=== PATIENT | female | born 1955 | race Caucasian/White ===

== ENCOUNTER 2017-07-30 12:39 | Emergency (ER) | payer BC ==
[2017-07-30 14:51] VITALS: BP 138/65
--- NOTE | 2017-07-30 15:11 | UC ---
Respiratory Complaint HPI - HPI Summary HPI Summary: 61 yo female with f/c cough and myalgias x 2 days no cp or sob - History of Current Complaint Chief Complaint: UCRespiratory Stated Complaint: FLU SYMPTOMS Time Seen by Provider: 07/30/17 15:01 Hx Obtained From: Patient Onset/Duration: Gradual Onset, Lasting Days Timing: Constant Severity Initially: Moderate Severity Currently: Mild Pain Intensity: 4 Pain Scale Used: 0-10 Numeric Character: Cough: Nonproductive Associated Signs And Symptoms: Positive: Nasal Congestion, Sinus Discomfort - Allergies/Home Medications Allergies/Adverse Reactions: Allergies Allergy/AdvReac Type Severity Reaction Status Date / Time No Known Allergies Allergy Verified 07/30/17 14:51 Home Medications: Home Medications Dapagliflozin Propanediol [Farxiga] 10 mg PO 07/30/17 [History] Levothyroxine TAB* [Synthroid TAB*] 125 mcg PO 0800 07/30/17 [History Confirmed 07/30/17] Pioglitazone TAB* [Actos TAB*] 15 mg PO DAILY 07/30/17 [History Confirmed ] Repaglinide [Prandin] 2 mg PO 07/30/17 [History] Valsartan [Valsartan 320 MG] 320 mg PO DAILY 07/30/17 [History Confirmed ] metFORMIN* [Glucophage 1000 MG TAB *] 1,000 mg PO BID 07/30/17 [History Confirmed 07/30/17] PMH/Surg Hx/FS Hx/Imm Hx Previously Healthy: Yes Endocrine History: Diabetes Cardiovascular History: Hypertension - Surgical History Surgical History: None - Family History Known Family History: Positive: Cardiac Disease, Diabetes - Social History Alcohol Use: Rare Substance Use Type: None Smoking Status (MU): Never Smoked Tobacco Review of Systems Constitutional: Fever, Chills, Fatigue Skin: Negative Eyes: Negative ENT: Nasal Discharge Respiratory: Cough Cardiovascular: Negative Gastrointestinal: Negative Genitourinary: Negative Motor: Negative Neurovascular: Negative Musculoskeletal: Myalgia Neurological: Headache Psychological: Negative Is Patient Immunocompromised?: No All Other Systems Reviewed And Are Negative: Yes Physical Exam Triage Information Reviewed: Yes Appearance: Well-Appearing, No Pain Distress, Well-Nourished Vital Signs: Initial Vital Signs Temp 100.8 F 07/30/17 14:46 Pulse 102 07/30/17 14:46 Resp 18 07/30/17 14:46 BP 138/65 07/30/17 14:46 Pulse Ox 95 07/30/17 14:46 Vital Signs Reviewed: Yes Eyes: Positive: Conjunctiva Clear ENT: Positive: Hearing grossly normal, Nasal congestion, Nasal drainage, Uvula midline. Negative: Muffled voice, Hoarse voice Neck: Positive: Supple, Nontender Respiratory: Positive: Chest non-tender, Lungs clear, Normal breath sounds, No respiratory distress Cardiovascular: Positive: RRR, No Murmur Musculoskeletal: Positive: ROM Intact, No Edema Neurological: Positive: Alert Skin Exam: Normal UC Diagnostic Evaluation - Laboratory Pertinent Lab Values Are: WNL Except: - inluenza A (+) O2 Sat by Pulse Oximetry: 95 Respiratory Course/Dx - Differential Dx/Diagnosis Provider Diagnoses: influenza Discharge - Discharge Plan Condition: Stable Disposition: HOME Prescriptions: Oseltamivir CAP* [Tamiflu CAP*] 75 mg PO BID #10 cap Patient Education Materials: Influenza (ED) Referrals: Non Staff,Doctor [Primary Care Provider] - 6 Days (if not better) Additional Instructions: rest fluids tylenol or advil recheck for new or worsening symptoms
== END 2017-07-30 15:33 | disposition home or self-care (01) ==
LOC: UCCORT 12:39
DX: J10.1 Influenza due to other identified influenza virus with other respiratory manifestations (principal); E11.9 Type 2 diabetes mellitus without complications; Z79.84 Long term (current) use of oral hypoglycemic drugs; I10 Essential (primary) hypertension
CPT/HCPCS: 87502; 99202; G0463

== ENCOUNTER 2018-06-15 08:52 | Emergency (ER) | payer BC ==
[2018-06-15 09:35] VITALS: BP 135/61
--- NOTE | 2018-06-15 09:59 | UC ---
General HPI - HPI Summary HPI Summary: "I THINK I HAVE A UTI". THIS AM PT NOTED "DISCOMFORT" WITH URINATION PLUS SOME FREQUENCY AND URGENCY WELL. HERE, SHE NOTED SOME BLOOD IN THE URINE. SHE DENIES ANY HX OF INJURY, FEVER, ABDOMINAL OR FLANK PAIN. NO BLOOD THINNER USE OR ISSUES WITH BRUISING/BLEEDING. - History of Current Complaint Chief Complaint: UCGU Stated Complaint: URINARY Time Seen by Provider: 06/15/18 09:52 Hx Obtained From: Patient Onset/Duration: Gradual Onset Pain Intensity: 0 Associated Signs & Symptoms: Positive: Dysuria. Negative: Abdominal Pain, Anticoagulation Therapy, Back Pain, Fever, Nausea, Vomiting - Allergy/Home Medications Allergies/Adverse Reactions: Allergies Allergy/AdvReac Type Severity Reaction Status Date / Time No Known Allergies Allergy Verified 06/15/18 09:31 PMH/Surg Hx/FS Hx/Imm Hx Endocrine History: Diabetes, Thyroid Disease - Surgical History Surgical History: None - Family History Known Family History: Positive: Cardiac Disease, Diabetes - Social History Lives: With Family Alcohol Use: None Substance Use Type: None Smoking Status (MU): Never Smoked Tobacco - Immunization History Vaccination Up to Date: Yes Review of Systems All Other Systems Reviewed And Are Negative: Yes Constitutional: Positive: Negative Skin: Positive: Negative Eyes: Positive: Negative ENT: Positive: Negative Respiratory: Positive: Negative Cardiovascular: Positive: Negative Gastrointestinal: Positive: Negative Genitourinary: Positive: Dysuria, Hematuria, Frequency, Urgency. Negative: Vaginal/Penile Discharge Motor: Positive: Negative Neurovascular: Positive: Negative Musculoskeletal: Positive: Negative Neurological: Positive: Negative Psychological: Positive: Negative Physical Exam Triage Information Reviewed: Yes Appearance: Well-Appearing Vital Signs: Initial Vital Signs Temp 98.2 F 06/15/18 09:29 Pulse 95 06/15/18 09:29 Resp 16 06/15/18 09:29 BP 135/61 06/15/18 09:29 Pulse Ox 98 06/15/18 09:29 Vital Signs Reviewed: Yes Eyes: Positive: Conjunctiva Clear ENT: Positive: Normal ENT inspection Neck: Positive: Supple, Nontender, No Lymphadenopathy Respiratory: Positive: Lungs clear, Normal breath sounds Cardiovascular: Positive: RRR, Murmur:Sys:Grade _?_/ - II Abdomen Description: Positive: Nontender, No Organomegaly, Soft. Negative: CVA Tenderness (R), CVA Tenderness (L), Distended, Guarding Bowel Sounds: Positive: Present Musculoskeletal: Positive: ROM Intact Neurological: Positive: Alert Psychological: Positive: Normal Response To Family, Age Appropriate Behavior Skin Exam: Normal Diagnostics - Laboratory Diagnostic Studies Completed/Ordered: U/A=PROTEIN, GLUCOSE, BLOOD WITH CULTURE PENDING. Course/Dx - Course Course Of Treatment: NON TOXIC, NO ACUTE ABDOMEN. WILL COVER FOR UTI BUT POSSIBLE CYSTITIS(NON INFECTION) OR CA GIVEN BLOOD IN URINE. PT ADVISED OF NEED FOR CLOSE F/U TO WHICH SHE AGREES. INCIDENAL MURMUR ON EXAM, NEW. NO CP OR SOB. PT ADVISED OF NEED FOR F/U AND EVALUATION TO WHICH SHE AGREES WELL. - Diagnoses Provider Diagnosis: Dysuria, Hematuria, Murmur, heart Discharge - Sign-Out/Discharge Documenting (check all that apply): Patient Departure All imaging exams completed and their final reports reviewed: No Studies - Discharge Plan Condition: Stable Disposition: HOME Prescriptions: Cephalexin CAP* [Keflex CAP*] 500 mg PO BID 7 Days #14 cap Patient Education Materials: Hematuria (ED), Dysuria (ED), Heart Murmur (ED) Referrals: No Primary Care Phys,NOPCP [Primary Care Provider] - Additional Instructions: FOLLOW UP WITH YOUR PRIMARY CARE AT [facility] IN 4-5 DAYS. GO TO ER FOR ANY WORSENING. - Billing Disposition and Condition Condition: STABLE Disposition: Home - Attestation Statements Provider Attestation: I was available for consult. This patient was seen by the KIMI. The patient was not presented to, seen by, or examined by me. -Dioni
--- NOTE | 2018-06-17 07:17 | UC ---
- Progress Note Progress Note: urine - no growth on cephalexin Please call pt - ensure f/u with PCP as had 3+ blood if improving - complete abx course to ED with ongoing or worsening sx 06/17/18 Course/Dx - Diagnoses Provider Diagnoses: Dysuria, Hematuria, Murmur, heart Discharge - Sign-Out/Discharge Documenting (check all that apply): Post-Discharge Follow Up All imaging exams completed and their final reports reviewed: No Studies - Discharge Plan Condition: Stable Disposition: HOME Prescriptions: Cephalexin CAP* [Keflex CAP*] 500 mg PO BID 7 Days #14 cap Patient Education Materials: Hematuria (ED), Dysuria (ED), Heart Murmur (ED) Referrals: No Primary Care Phys,NOPCP [Primary Care Provider] - Additional Instructions: FOLLOW UP WITH YOUR PRIMARY CARE AT [facility] IN 4-5 DAYS. GO TO ER FOR ANY WORSENING. - Billing Disposition and Condition Condition: STABLE Disposition: Home
== END 2018-06-15 10:19 | disposition home or self-care (01) ==
LOC: UCCORT 08:52
DX: R30.0 Dysuria (principal); R31.9 Hematuria, unspecified; R01.1 Cardiac murmur, unspecified; E11.9 Type 2 diabetes mellitus without complications
CPT/HCPCS: 81003; 87086; 99212; G0463

== ENCOUNTER 2019-03-10 18:13 | Emergency (ER) | payer BC ==
[2019-03-10 18:24] VITALS: BP 116/51
--- NOTE | 2019-03-10 18:26 | UC ---
Dizzy HPI HPI Summary: 63-year-old female presents with sudden onset of dizziness, double vision, and left arm and leg tingling at 4:40 PM this afternoon. Describes dizziness as a sensation of room spinning. States symptoms lasted for approximately 3 minutes and then resolved. Reports episode was witnessed and no reports of confusion, facial droop, or slurred speech were noted. Patient states that over the past 3 -4 days she has had some mild upper respiratory symptoms. Denies headache, chest pain, palpitations, shortness of breath, abdominal pain, nausea, or vomiting. - History Of Current Complaint Stated Complaint: DIZZY SPELL Time Seen by Provider: 03/10/19 18:16 Hx Obtained From: Patient - Allergies/Home Medications Allergies/Adverse Reactions: Allergies Allergy/AdvReac Type Severity Reaction Status Date / Time No Known Allergies Allergy Verified 03/10/19 18:25 Home Medications: Home Medications Cholecalciferol TAB* [Vitamin D TAB*] 10,000 unit PO WEEKLY 03/10/19 [History Confirmed 03/10/19] Cyanocobalamin TAB* [Vitamin B12 TAB*] 1,000 mcg PO DAILY 03/10/19 [History Confirmed 03/10/19] PMH/Surg Hx/FS Hx/Imm Hx Endocrine History: Diabetes Cardiovascular History: Hypertension - Surgical History Surgical History: None - Family History Known Family History: Positive: Cardiac Disease, Hypertension, Diabetes, Other - CVA - mother, Brain tumor - father - Social History Occupation: Employed Full-time Lives: With Family Alcohol Use: None Substance Use Type: None Smoking Status (MU): Never Smoked Tobacco - Immunization History Vaccination Up to Date: Yes Review of Systems All Other Systems Reviewed And Are Negative: Yes Constitutional: Negative: Fever, Chills Eyes: Positive: Diplopia. Negative: Blurred Vision, Photophobia ENT: Positive: Negative Respiratory: Positive: Negative Cardiovascular: Negative: Palpitations, Chest Pain Gastrointestinal: Negative: Abdominal Pain, Vomiting, Diarrhea, Nausea Genitourinary: Positive: Negative Musculoskeletal: Positive: Negative Neurological: Positive: Paresthesia, Numbness. Negative: Headache, Weakness Is Patient Immunocompromised?: No Physical Exam - Summary Physical Exam Summary: GENERAL APPEARANCE: Well developed, well nourished, alert and cooperative, and appears to be in no acute distress. EYES: Conjunctiva clear. No drainage. PERRL, EOM intact. Vision is grossly intact. EARS: External auditory canals and tympanic membranes clear, hearing grossly intact. NOSE: No nasal discharge. THROAT: Pharynx normal. No tonsilar inflammation, swelling, exudate, or lesions. Uvula midline. NECK: Neck supple, non-tender without lymphadenopathy. CARDIAC: Normal S1 and S2. No S3, S4. Mid-systolic murmur. Rhythm is regular. There is no peripheral edema, cyanosis or pallor. Extremities are warm and well perfused. Capillary refill is less than 2 seconds. Peripheral pulses intact. LUNGS: Clear to auscultation without rales, rhonchi, wheezing or diminished breath sounds. ABDOMEN: Positive bowel sounds. Soft, nondistended, nontender. No guarding or rebound. No masses or hepatosplenomegally. MUSKULOSKELETAL: ROM intact to all extremities. No joint erythema or tenderness. Normal muscular development. Normal gait. NEUROLOGICAL: CN II-XII intact. Strength and sensation symmetric and intact throughout. Reflexes 2+ throughout. Cerebellar testing normal. SKIN: Skin normal color, texture and turgor with no lesions or eruptions. Triage Information Reviewed: Yes Vital Signs Reviewed: Yes Diagnostics - EKG Summary of EKG Findings: NSR at rate of 87. Mild flattening of T-wave in lead II and T-wave inversion lead III. No LASHON or ectopy. No previous EKG for comparison. Dizzy Course/Dx - Course Course Of Treatment: 63-year-old female presents with sudden onset of dizziness, double vision, and left arm and leg tingling at 4:40 PM this afternoon. Describes dizziness as a sensation of room spinning. States symptoms lasted for approximately 3 minutes and then resolved. Reports episode was witnessed and no reports of confusion, facial droop, or slurred speech were noted. Patient states that over the past 3 -4 days she has had some mild upper respiratory symptoms. Denies headache, chest pain, palpitations, shortness of breath, abdominal pain, nausea, or vomiting. Afebrile. Vital signs stable. Patient was neurologically intact and had an otherwise unremarkable exam. Twelve-lead EKG showed normal sinus rhythm at a rate of 89 with mild flattening of the T-wave in lead II and T-wave inversion in lead III. No ectopy or ST elevation. No previous EKG for comparison. [id number] fingerstick glucose was 202. Discussed results with the patient and recommended based on her personal and family history as well as symptoms of diplopia with left arm and leg paresthesia that she go to the emergency room via EMS for further evaluation. Patient is agreeable to going to the emergency room for further evaluation however is electing to transport via personal vehicle with her spouse driving. The patient is clinically sober, free from distracting injury, appears to have insight and reasoning and in my judgment has capacity to make decisions. I have explained that I am concerned that her symptoms may represent a TIA and she verbalizes understanding of my concern. I have told the patient that despite being assymptomatic at this time they could still have experienced a TIA which could progress to CVA. I have told the patient if she chooses to transport via private vehicle she could experience a motor vehicle crash, have worsening of symptoms, become critically ill, suffer diability, and even possibly . The paient continues to decline transport via EMS. - Differential Dx/Diagnosis Differential Diagnosis/HQI/PQRI: Benign Paroxysmal Positional Vertigo, CVA, Labyrinthitis, Myocardial Infarction, Transient Ischemic Attack Provider Diagnosis: Dizziness, Diplopia, Arm paresthesia, left - Physician Notifications Discussed Patient Care With: Dr. Sharad Chen - [facility] ED Time Discussed With Above Provider: 18:40 Instructed by Provider To: MD Will See In ED Discharge ED - Sign-Out/Discharge Documenting (check all that apply): Patient Departure All imaging exams completed and their final reports reviewed: No Studies - Discharge Plan Condition: Guarded Disposition: HOME-RECOMMEND TO ED Referrals: No Primary Care Phys,NOPCP [Primary Care Provider] - Additional Instructions: Based on your history and risk factors I am recommending that you be further evaluated in the emergency room at this time. Go directly to the emergency room from here. - Billing Disposition and Condition Condition: GUARDED Disposition: Home-Recommend to ED
== END 2019-03-10 18:50 | disposition home health service (06) ==
LOC: UCCORT 18:13
DX: H53.2 Diplopia (principal); R20.2 Paresthesia of skin; E11.9 Type 2 diabetes mellitus without complications; I10 Essential (primary) hypertension
CPT/HCPCS: 93005; 99212; G0463